=== PATIENT | male | born 1995 | race Caucasian/White ===

== ENCOUNTER 2022-04-08 19:49 | Emergency (ER) | payer SELFPAY ==
[2022-04-08 20:18] VITALS: BP 122/79
== END 2022-04-09 09:09 | disposition left against medical advice (07) ==
LOC: ED 19:49
DX: M54.9 Dorsalgia, unspecified (principal); Z53.21 Procedure and treatment not carried out due to patient leaving prior to being seen by health care provider; V89.2XXA Person injured in unspecified motor-vehicle accident, traffic, initial encounter; Y93.89 Activity, other specified; Y92.89 Other specified places as the place of occurrence of the external cause; Y99.8 Other external cause status